=== PATIENT | male | born 1985 | race Caucasian/White ===

== ENCOUNTER 2023-02-28 09:31 | Outpatient (REF) | payer OTHER, SELFPAY ==
[2023-02-28 11:13] LABS: MANUAL DIFF FLAG NO
[2023-02-28 11:53] LABS: Basophils Percent Auto 0.3 % (0-2); Eosinophils Absolute Auto 0.1 X10*3/uL (0.0-0.4); Eosinophils Percent Auto 0.8 % (0-4); Hematocrit 45.1 % (42.0-52.0); Hemoglobin 15.4 g/dl (14.0-18.0); Imm Gran Abs Auto 0.03 X10*3/uL (0.00-0.03); Imm Gran Pct Auto 0.4 % (0.0-0.4); Lymphocytes Absolute Auto 1.1 X10*3/uL (1.2-4.9); Lymphocytes Percent Auto 14.8 % (20-40); Mean Corpuscular HGB Conc 34.1 g/dl (31.0-36.0); Mean Corpuscular Hemoglobin 30.8 pg (27.0-33.0); Mean Corpuscular Volume 90.2 fL (80.0-98.0); Mean Platelet Volume 9.7 fL (9.4-12.4); Monocytes Absolute Auto 0.5 X10*3/uL (0.1-1.2); Monocytes Percent Auto 7.3 % (2-11); Neutrophils Absolute Auto 5.6 x10*3/uL (2.0-8.3); Neutrophils Percent Auto 76.4 % (45-73); Platelet Count 219 X10*3/uL (160-400); Red Cell Distribution Width 13.7 % (11.0-16.0); White Blood Count 7.3 X10*3/uL (4.8-10.8)
[2023-02-28 12:44] LABS: Alanine Aminotransferase 22 U/L (0-40); Albumin Level 4.4 g/dL (3.5-5.0); Alkaline Phosphatase 46 U/L (39-117); Anion Gap 12 (12-20); Aspartate Amino Transferase 17 U/L (5-37); Bilirubin Total 0.8 mg/dL (0.0-1.0); Blood Urea Nitrogen 18 mg/dL (9-16); Calcium 9.6 mg/dL (8.4-10.2); Carbon Dioxide 27 mmol/L (22-29); Chloride 106 mmol/L (96-108); Estimated Glomerular Filt Rate > 60; Glucose Random 96 mg/dL (60-115); Potassium 4.6 mmol/L (3.3-5.1); Sodium 140 mmol/L (135-145); Total Protein 7.2 g/dL (6.5-8.0)
== END 2023-02-28 09:32 | disposition home or self-care (01) ==
LOC: HO.LAB 09:31
PROVIDERS: Visit Provider Nurse Practitioner Psychiatric/Mental Health
DX: F10.20 Alcohol dependence, uncomplicated (principal); Z51.81 Encounter for therapeutic drug level monitoring; Z79.899 Other long term (current) drug therapy
CPT/HCPCS: 36415; 80053; 80305; 85025; 99202

== ENCOUNTER → 2023-03-15 09:15 | Outpatient (BNVA) | payer OTHER, SELFPAY | PROVIDERS: Visit Provider Nurse Practitioner Psychiatric/Mental Health | DX: Z51.81 Encounter for therapeutic drug level monitoring (principal); Z79.01 Long term (current) use of anticoagulants; F10.20 Alcohol dependence, uncomplicated; Z79.899 Other long term (current) drug therapy | CPT/HCPCS: 80305; 99212 ==

== ENCOUNTER → 2023-04-05 09:23 | Outpatient (BNVA) | payer OTHER, SELFPAY | PROVIDERS: Visit Provider Nurse Practitioner Psychiatric/Mental Health | DX: F10.20 Alcohol dependence, uncomplicated (principal); Z79.899 Other long term (current) drug therapy; Z51.81 Encounter for therapeutic drug level monitoring | CPT/HCPCS: 99212 ==

== ENCOUNTER → 2023-05-03 10:07 | Outpatient (BNVA) | payer OTHER, SELFPAY | PROVIDERS: Visit Provider Nurse Practitioner Psychiatric/Mental Health | DX: F10.20 Alcohol dependence, uncomplicated (principal) | CPT/HCPCS: 99212 ==

== ENCOUNTER 2023-06-28 09:53 | Outpatient (AMB) | payer OTHER, SELFPAY ==
[2023-06-28 10:06] VITALS: BP 106/70; PULSE 78; O2SAT 97
--- NOTE | 2023-06-28 10:06 | A.OFFVIS_ITS ---
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 Doing well with recovery, settling into his new home. Review of Systems Const Reports as per HPI and Reports no additional complaints Physical Exam Vital Signs: Last Vital Signs Pulse 78 06/28/23 10:06 BP 106/70 06/28/23 10:06 Pulse Ox 97 06/28/23 10:06 Oxygen Delivery Method Room Air 06/28/23 10:06 Const General: cooperative and healthy appearing Psych Appearance: well kempt Speech and movement: Clear speech present Affect: normal affect Attitude: cooperative Thought process: Normal thought process present Thought content: Normal thought content present Insight: Fair insight present (Psych) Assessment & Plan Assessment & Plan (1) Alcohol use disorder, moderate, dependence: Code(s): F10.20 - Alcohol dependence, uncomplicated Plan: * Continue naltrexone at current dose * Follow up 8 weeks * Relapse prevention discussion * Encouraged call office should he need to be seen sooner Coding Level of Care Code Est Pt Level 3 (56653) Diagnoses Alcohol use disorder, moderate, dependence F10.20
== END 2023-06-28 10:21 | disposition home or self-care (01) ==
LOC: HO.HCC 09:53
PROVIDERS: Visit Provider Nurse Practitioner Psychiatric/Mental Health
DX: F10.20 Alcohol dependence, uncomplicated (principal)
CPT/HCPCS: 99213

== ENCOUNTER → 2023-06-28 09:53 | Outpatient (BNVA) | payer OTHER, SELFPAY | PROVIDERS: Visit Provider Nurse Practitioner Psychiatric/Mental Health | DX: F10.20 Alcohol dependence, uncomplicated (principal); Z79.899 Other long term (current) drug therapy; Z51.81 Encounter for therapeutic drug level monitoring | CPT/HCPCS: 99212 ==

== ENCOUNTER 2023-08-23 10:14 | Outpatient (AMB) | payer OTHER, SELFPAY ==
[2023-08-23 10:23] VITALS: BP 110/60; PULSE 65; O2SAT 98
--- NOTE | 2023-08-23 10:23 | A.OFFVIS_ITS ---
Intake Vital Signs 08/23/23 10:23 BP 110/60 Blood Pressure Location Lt brachial Position Sitting Pulse 65 Pulse Oximetry (%) 98 Intake Visit Reasons: mat visit Allergies No Known Allergies Allergy (Verified 06/28/23 10:07) HPI mat visit HPI Details Patient presents for AUD treatment follow up Prescribed Naltrexone 50mg QD Reports that he continues to abstain from alcohol and is doing well with recovery no questions or concerns at this time Review of Systems Const Reports as per HPI and Reports no additional complaints Physical Exam Vital Signs: Last Vital Signs Pulse 65 08/23/23 10:23 BP 110/60 08/23/23 10:23 Pulse Ox 98 08/23/23 10:23 Const General: cooperative and healthy appearing Psych Appearance: well kempt Speech and movement: Clear speech present Affect: normal affect Attitude: cooperative Thought process: Normal thought process present Thought content: Normal thought content present Insight: Good insight present (Psych) Judgement: Good judgement present (Psych) Assessment & Plan Assessment & Plan (1) Alcohol use disorder, moderate, dependence: Code(s): F10.20 - Alcohol dependence, uncomplicated Plan: * continue naltrexone * follow up 2 months Coding Level of Care Code Est Pt Level 3 (63842) Diagnoses Alcohol use disorder, moderate, dependence F10.20
== END 2023-08-23 10:54 | disposition home or self-care (01) ==
LOC: HO.HCC 10:14
PROVIDERS: Visit Provider Nurse Practitioner Psychiatric/Mental Health
DX: F10.20 Alcohol dependence, uncomplicated (principal)
CPT/HCPCS: 99213

== ENCOUNTER → 2023-08-23 10:14 | Outpatient (BNVA) | payer OTHER, SELFPAY | PROVIDERS: Visit Provider Nurse Practitioner Psychiatric/Mental Health | DX: F10.20 Alcohol dependence, uncomplicated (principal) | CPT/HCPCS: 99212 ==

== ENCOUNTER 2023-10-31 13:03 | Outpatient (AMB) | payer OTHER, SELFPAY ==
[2023-10-31 13:11] VITALS: BP 122/78; PULSE 74; O2SAT 94
--- NOTE | 2023-10-31 13:11 | A.OFFVIS_ITS ---
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 [place] He reports recovery is going well for him, has been in recovery since January Says this time of year is hard for him - anniversary of sister's Has been experiencing good effect from the naltrexone, denies side effects Review of Systems Const Reports as per HPI Physical Exam Vital Signs: Last Vital Signs Pulse 74 10/31/23 13:11 BP 122/78 10/31/23 13:11 Pulse Ox 94 10/31/23 13:11 Oxygen Delivery Method Room Air 10/31/23 13:11 Const General: cooperative and healthy appearing Nutritional Appearance: average body habitus Resp Effort & Inspection: normal respiratory effort Psych Appearance: grossly normal and well kempt Mental Status: mental status grossly normal Speech and movement: Normal speech and movement present Affect: normal affect Attitude: cooperative Thought process: Normal thought process present Assessment & Plan Assessment & Plan (1) Alcohol use disorder, moderate, dependence: Code(s): F10.20 - Alcohol dependence, uncomplicated Plan: Naltrexone refill sent to pharmacy Follow up in 8 weeks Reviewed with pt to call [facility] with questions or concerns, or if he needs to be se en sooner Medications: New naltrexone 50 mg PO DAILY 30 tabs 5RF Coding Level of Care Code Est Pt Level 3 (54978) Diagnoses Alcohol use disorder, moderate, dependence F10.20
== END 2023-10-31 13:31 | disposition home or self-care (01) ==
PROVIDERS: Visit Provider Nurse Practitioner Family
DX: F10.20 Alcohol dependence, uncomplicated (principal)
CPT/HCPCS: 99213

== ENCOUNTER → 2023-10-31 13:03 | Outpatient (BNVA) | payer OTHER, SELFPAY | PROVIDERS: Visit Provider Nurse Practitioner Psychiatric/Mental Health | DX: F10.20 Alcohol dependence, uncomplicated (principal); Z51.81 Encounter for therapeutic drug level monitoring; Z79.899 Other long term (current) drug therapy | CPT/HCPCS: 99212 ==

== ENCOUNTER 2023-12-26 12:55 | Outpatient (AMB) | payer OTHER, SELFPAY ==
--- NOTE | 2023-12-26 12:57 | A.OFFVISCC_ITS ---
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 He has been having difficulties picking up his naltrexone for the past 3 weeks due to shortages in the med supply. Denies any other concerns at this time Review of Systems Const Reports as per HPI Physical Exam Vital Signs: Last Vital Signs Pulse 74 12/26/23 13:03 BP 124/70 12/26/23 13:03 Pulse Ox 98 12/26/23 13:03 Oxygen Delivery Method Room Air 12/26/23 13:03 Const General: cooperative and healthy appearing Resp Effort & Inspection: normal respiratory effort Skin General skin exam: no rashes or lesions noted Psych Appearance: grossly normal Mental Status: mental status grossly normal Speech and movement: Normal speech and movement present Attitude: cooperative Assessment & Plan Assessment & Plan (1) Alcohol use disorder, moderate, dependence: Code(s): F10.20 - Alcohol dependence, uncomplicated Plan: -Naltrexone sent to different pharmacy in hopes they have some on formulary, patient instructed to call should he have difficulties picking up his medication -Relapse prevention discussed -Follow up 8 weeks Medications: Refilled naltrexone 50 mg PO DAILY 30 tabs 5RF Coding Level of Care Code Est Pt Level 3 (37405) Diagnoses Alcohol use disorder, moderate, dependence F10.20
[2023-12-26 13:03] VITALS: BP 124/70; PULSE 74; O2SAT 98
== END 2023-12-26 13:18 | disposition home or self-care (01) ==
PROVIDERS: Visit Provider Nurse Practitioner Family
DX: F10.20 Alcohol dependence, uncomplicated (principal)
CPT/HCPCS: 99213

== ENCOUNTER → 2023-12-26 12:55 | Outpatient (BNVA) | payer OTHER, SELFPAY | PROVIDERS: Visit Provider Nurse Practitioner Family | DX: F10.20 Alcohol dependence, uncomplicated (principal) | CPT/HCPCS: 99212 ==

== ENCOUNTER 2024-02-20 11:00 | Outpatient (AMB) | payer OTHER, SELFPAY ==
--- NOTE | 2024-02-20 11:01 | MHC.AM.SUB ---
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: No Allergies No Known Allergies Allergy (Verified 02/20/24 11:07) Do you need a note to return to daycare/school/sports/work: No HPI mat visit HPI Details Pt presents for AUD treatment and follow up Reports he relapsed in December and had some nips on a few separate occasions Reports one of the times he was with his child, his came home and called the waste hand on him He reports he was arrested for child endangerment, DCF is now involved, however he feels confident charges will be dropped He identifies difficulty obtaining naltrexone as a potential trigger for his relapse He is being reuired to attend [facility]- which is a treatment program run through the . He started 3 weeks ago and has to attend weekly meetings for the next 6 months He reports he is also waiting for intake at [facility] He appears guarded and ?minimization of circumstances. Was reluctant to provide details regarding his arrest Review of Systems Const Reports as per HPI Physical Exam Vital Signs: Last Vital Signs Pulse 69 02/20/24 11:06 BP 122/84 02/20/24 11:06 Pulse Ox 95 02/20/24 11:06 Oxygen Delivery Method Room Air 02/20/24 11:06 Const General: cooperative and no acute distress Resp Effort & Inspection: normal respiratory effort Psych Appearance: grossly normal Mental Status: mental status grossly normal Speech and movement: Normal speech and movement present Affect: normal affect Attitude: Guarded attititude/behavior present Assessment & Plan Assessment & Plan (1) Alcohol use disorder, moderate, dependence: Code(s): F10.20 - Alcohol dependence, uncomplicated Plan: -Discussed recovery supports with patient, he is uninterested in a financial coach at this time -Provided him contact information for [facility] -Follow up 4 weeks Coding Level of Care Code Est Pt Level 3 (99064) Diagnoses Alcohol use disorder, moderate, dependence F10.20
[2024-02-20 11:06] VITALS: BP 122/84; PULSE 69; O2SAT 95
== END 2024-02-20 11:20 | disposition home or self-care (01) ==
PROVIDERS: Visit Provider Nurse Practitioner Family
DX: F10.20 Alcohol dependence, uncomplicated (principal)
CPT/HCPCS: 99213

== ENCOUNTER → 2024-02-20 11:00 | Outpatient (BNVA) | payer OTHER, SELFPAY | PROVIDERS: Visit Provider Nurse Practitioner Family | DX: F10.20 Alcohol dependence, uncomplicated (principal) | CPT/HCPCS: 99212 ==

== ENCOUNTER 2024-03-19 11:13 | Outpatient (AMB) | payer OTHER, SELFPAY ==
--- NOTE | 2024-03-19 11:17 | MHC.AM.SUB ---
Vital Signs 03/19/24 11:18 BP 110/60 Blood Pressure Location Rt radial Position Sitting Respiration 22 H Pulse Oximetry (%) 98 Intake Visit Reasons: mat visit Allergies No Known Allergies Allergy (Verified 02/20/24 11:07) HPI HPI mat visit: Details: Patient presents for AUD treatment and follow up He reports he is continuing to go to his weekly mandated program Has not had any alcohol to drink since his relapse Has court on 04/10, he feels his charges will be resolved on that day Declining any additional recovery supports Feels as though he is good with the [facility] mandated treatment program Still taking naltrexone 50mg daily, tolerating well HPI Comments Details: Patient presents for MAT visit Review of Systems Const Reports as per HPI Physical Exam Vital Signs: Last Vital Signs Resp 22 H 03/19/24 11:18 BP 110/60 03/19/24 11:18 Pulse Ox 98 03/19/24 11:18 Const General: cooperative and no acute distress Resp Effort & Inspection: normal respiratory effort and able to speak in complete sentences Psych Appearance: grossly normal Mental Status: mental status grossly normal Speech and movement: Normal speech and movement present Affect: normal affect Attitude: Guarded attititude/behavior present Thought process: Normal thought process present Assessment & Plan Assessment & Plan (1) Screening cholesterol level: Comment: Has not seen PCP in years Code(s): Z13.220 - Encounter for screening for lipoid disorders Category: Medical Plan: -Labs ordered to check cholesterol (2) Alcohol use disorder, moderate, dependence: Code(s): F10.20 - Alcohol dependence, uncomplicated Category: Medical Plan: -Continue naltrexone -Relapse prevention discussed, he continues to minimize and is not receptive to extra help -Follow up 1 month Orders: Orders Lipid Panel Today Z13.220 - Encounter for screening for lipoid disorders Complete Blood Count Auto Diff Today F10.20 - Alcohol dependence, uncomplicated Comprehensive Met. Panel Today F10.20 - Alcohol dependence, uncomplicated
[2024-03-19 11:18] VITALS: BP 110/60; RESP 22; O2SAT 98
== END 2024-03-19 11:30 | disposition home or self-care (01) ==
LOC: HO.HCC 11:13
PROVIDERS: Visit Provider Nurse Practitioner Family
DX: F10.20 Alcohol dependence, uncomplicated (principal); Z13.220 Encounter for screening for lipoid disorders
CPT/HCPCS: 99213

== ENCOUNTER → 2024-03-19 11:13 | Outpatient (BNVA) | payer OTHER, SELFPAY | PROVIDERS: Visit Provider Nurse Practitioner Family | DX: Z13.220 Encounter for screening for lipoid disorders (principal); F10.20 Alcohol dependence, uncomplicated | CPT/HCPCS: 99212 ==

== ENCOUNTER 2024-04-30 10:45 | Outpatient (AMB) | payer OTHER, SELFPAY ==
--- NOTE | 2024-04-30 10:46 | MHC.AM.SUB ---
Vital Signs 04/30/24 10:53 BP 100/60 Blood Pressure Location Rt brachial Position Sitting Respiration 19 Pulse 89 Pulse Source Pulse Oximeter Intake Visit Reasons: mat visit Allergies No Known Allergies Allergy (Verified 02/20/24 11:07) HPI HPI mat visit: Details: Patient presents for AUD treatment and follow up States he has been working with the for psychiatric and therapy referrals States he has not taken his naltrexone for a few weeks, feeling solid in recovery at this time Denies cravings or urges to drink Likes having the naltrexone at home and knowing he can take if he needs No concerns today HPI Comments Details: Patient presents for MAT visit Review of Systems Const Reports as per HPI Physical Exam Vital Signs: Last Vital Signs Pulse 89 04/30/24 10:53 Resp 19 04/30/24 10:53 BP 100/60 04/30/24 10:53 Const General: cooperative and no acute distress Resp Effort & Inspection: normal respiratory effort and able to speak in complete sentences Psych Appearance: grossly normal Mental Status: mental status grossly normal Speech and movement: Normal speech and movement present Affect: normal affect Attitude: cooperative Thought process: Normal thought process present Assessment & Plan Assessment & Plan (1) Alcohol use disorder, moderate, dependence: Code(s): F10.20 - Alcohol dependence, uncomplicated Category: Medical Plan: -Recovery supports discussed -Follow up 6 weeks
[2024-04-30 10:53] VITALS: BP 100/60; PULSE 89; RESP 19
== END 2024-04-30 11:27 | disposition home or self-care (01) ==
PROVIDERS: Visit Provider Nurse Practitioner Family
DX: F10.20 Alcohol dependence, uncomplicated (principal)
CPT/HCPCS: 99213

== ENCOUNTER → 2024-04-30 10:45 | Outpatient (BNVA) | payer OTHER, SELFPAY | PROVIDERS: Visit Provider Nurse Practitioner Family | DX: F10.20 Alcohol dependence, uncomplicated (principal); Z79.899 Other long term (current) drug therapy | CPT/HCPCS: 99212 ==